=== PATIENT | female | born 1960 | race Two or more races ===

== ENCOUNTER 2016-07-31 10:48 | Emergency (ER) | payer OTHER ==
[~2016-07-31] VITALS: Ht 154.9 cm; Wt 71.7 kg
[~2016-07-31 10:48] MED LIST: LEVO50TA7 PO
[2016-07-31 11:53] VITALS: BP 139/80
[2016-07-31] MEDS ORDERED: KETOROLAC TROMETH 60MG/2ML VIAL IM ONE (12:00)
== END 2016-07-31 12:40 | disposition home or self-care (01) ==
LOC: ER 10:56
DX: S83.92XA Sprain of unspecified site of left knee, initial encounter (principal); E07.9 Disorder of thyroid, unspecified; Z98.890 Other specified postprocedural states; Z90.710 Acquired absence of both cervix and uterus; W19.XXXA Unspecified fall, initial encounter; Y93.89 Activity, other specified; Y99.8 Other external cause status; Y92.89 Other specified places as the place of occurrence of the external cause
CPT/HCPCS: 73564; 96372; 99284; J1885